=== PATIENT | male | born 1935 | race Caucasian/White ===

== ENCOUNTER 2019-05-22 08:36 | Inpatient (IN) | payer MEDICARE ==
[~2019-05-22] VITALS: Ht 177.8 cm; Wt 95.3 kg
[2019-05-22] MEDS ORDERED: PROPOFOL 10MG/ML 100ML 100 ML IV ONE ×2 (09:30→09:36)
[2019-05-22] MEDS ORDERED: SUCCINYLCHOLINE CHLORIDE 200MG/10ML IV ONE (09:30)
[2019-05-22] MEDS ORDERED: ETOMIDATE 2MG/ML 10ML VIAL IV ONE (09:30)
[2019-05-22 09:36] LABS: HEMATOCRIT. 56.2 % (42.0-52.0); HEMOGLOBIN. 18.8 g/dL (14.0-18.0); MEAN CORPUSCULAR HEMOGLOBIN 29.4 pg (28.0-32.0); MEAN CORPUSCULAR VOLUME 87.8 fL (80.0-94.0); MEAN PLATELET VOLUME 9.5 fl (7.4-10.4); PLATELET 465 x1000/uL (130-400); RED CELL DISTRIBUTION WIDTH 14.2 % (11.6-14.6)
[2019-05-22 09:41] LABS: CHLORIDE 98 mEq/L (98-107)
[2019-05-22 09:44] LABS: INR 1.2; PROTHROMBIN TIME 13.3 sec (9.6-11.0)
[2019-05-22] MEDS ORDERED: NOREPINEPHRINE 4MG/250ML PMX 250 ML IV STA (09:54)
[2019-05-22] MEDS ORDERED: NOREPINEPHRINE 4MG/250ML PMX 250 ML IV ONE (10:01)
[2019-05-22 10:14] LABS: BG BASE EXCESS -12.4 mmol/L (-2.0-2.0); BG DEOXYHEMOGLOBIN 2.3 % (0.0-5.0); BG HCO3 ACT 16.2 mmol/L (22.0-26.0); BG METHEMOGLOBIN 0.3 % (0.0-1.5); BG OXYGEN SATURATION 97.7 % (92.0-98.5); BG OXYHEMOGLOBIN 96.4 % (94.0-97.0); BG PCO2 46.5 mmHg (35.0-45.0); BG PO2 121.6 mmHg (75.0-100.0); BG SAMPLE SITE RIGHT RADIAL; BG TIDAL VOLUME(mL) 500 mL; BG TOTAL HEMOGLOBIN 16.1 g/dL (12.0-18.0); BG VENT MODE VENT - A/C; BG VENT RATE 12 set
[2019-05-22 10:31] LABS: PLATELET ESTIMATE INCREASED
[2019-05-22] MEDS ORDERED: INSULIN REGULAR (HUMULIN R) 300UNITS/3ML IV ONE (11:00)
[2019-05-22] MEDS ORDERED: DEXTROSE 50% WATER 50ML SYRINGE IV ONE (11:00)
[2019-05-22] MEDS ORDERED: SODIUM BICARBONATE 8.4% 1 MEQ/ML 50ML SYR IV ONE (11:00)
[2019-05-22] MEDS ORDERED: CALCIUM CHLORIDE 1GM/10ML SYR IV ONE (11:00)
[2019-05-22] MEDS ORDERED: ACETAMINOPHEN 325MG TABLET PO PRN (12:30)
[2019-05-22] MEDS ORDERED: ONDANSETRON HCL 4MG/2ML INJ IV PRN (12:30)
[2019-05-22 13:48] LABS: BG BASE EXCESS -11.6 mmol/L (-2.0-2.0); BG CARBOXYHEMOGLOBIN 0.2 % (0.5-1.5); BG DEOXYHEMOGLOBIN 1.5 % (0.0-5.0); BG FRACTION INSPIRED OXYGEN 100; BG HCO3 ACT 14.8 mmol/L (22.0-26.0); BG METHEMOGLOBIN 0.5 % (0.0-1.5); BG OXYGEN SATURATION 98.5 % (92.0-98.5); BG OXYHEMOGLOBIN 97.8 % (94.0-97.0); BG PCO2 35.8 mmHg (35.0-45.0); BG PH 7.235 (7.350-7.450); BG PO2 136.2 mmHg (75.0-100.0); BG SAMPLE SITE RIGHT RADIAL; BG TIDAL VOLUME(mL) 500 mL; BG TOTAL HEMOGLOBIN 16.7 g/dL (12.0-18.0); BG VENT MODE VENT - A/C; BG VENT RATE 12 set
[2019-05-22] MEDS ORDERED: PIPERACILLIN/TAZ 3.375G PREMIX 50 ML IV NR (15:06)
[2019-05-22] MEDS: ENOXAPARIN 30MG/0.3ML SYR SUBCUT SCH (15:55)
[2019-05-22] MEDS ORDERED: VANCOMYCIN 1,750 MG in DEXT 5% WATER 250 ML IV SCH (16:00)
[2019-05-22] MEDS ORDERED: PROPOFOL 10MG/ML 100ML 100 ML IV NR (16:08)
[2019-05-22] MEDS ORDERED: PHENYLEPHRINE 10 MG in DEXT 5% WATER 249 ML IV PRN ×2 (17:32→17:45)
[2019-05-22] MEDS ORDERED: NOREPINEPHRINE 4 MG in DEXT 5% WATER 246 ML IV PRN (22:15)
[2019-05-22] MEDS ORDERED: INSULIN GLARGINE UD 100 UNITS/ML SYR SUBCUT SCH (22:30)
[2019-05-22] MEDS ORDERED: NOREPINEPHRINE 4MG/250ML PMX 250 ML IV PRN (22:30)
[2019-05-22] MEDS ORDERED: SODIUM POLYSTYRENE SULFONATE 15 G/60 ML BOT PO NR (22:45)
[2019-05-23] VITALS (90 sets, daily range): BP systolic 68–153; BP diastolic 21–96
[2019-05-23] MEDS ORDERED: PIPERACILLIN/TAZOBACTAM 2.25 G in DEXTROSE 5% WATER 50 ML IV NR ×2
[2019-05-23] MEDS: SODIUM CHLORIDE 0.9% 1,000 ML IV SCH (02:26)
[2019-05-23] MEDS ORDERED: PROPOFOL 10MG/ML 100ML 100 ML IV PRN (03:30)
[2019-05-23] MEDS ORDERED: PHENYLEPHRINE 10 MG in DEXT 5% WATER 249 ML IV PRN (03:45)
[2019-05-23] MEDS: NOREPINEPHRINE 32 MG in DEXT 5% WATER 468 ML IV PRN ×2 (05:36→23:01)
[2019-05-23 05:37] LABS: HEMOGLOBIN. 16.4 g/dL (14.0-18.0); MEAN CORPUSCULAR HEMOGLOBIN 29.1 pg (28.0-32.0); MEAN CORPUSCULAR VOLUME 87.4 fL (80.0-94.0); MEAN PLATELET VOLUME 9.5 fl (7.4-10.4); PLATELET 423 x1000/uL (130-400); RED BLOOD CELL COUNT 5.61 mill/uL (4.7-6.1); RED CELL DISTRIBUTION WIDTH 14.2 % (11.6-14.6)
[2019-05-23] MEDS: PHENYLEPHRINE 40 MG in DEXT 5% WATER 246 ML IV PRN ×4 (05:37→17:01)
[2019-05-23] MEDS: HYDROCORTISONE SOD SUCCINATE 100 MG/2 ML VIAL IV SCH ×3 (06:37→22:40)
[2019-05-23] MEDS ORDERED: ALBUMIN HUMAN 25GM/100ML (25%) IV SCH (07:00)
[2019-05-23] MEDS ORDERED: PIPERACILLIN/TAZOBACTAM 3.375 G in DEXT 5% WATER 100 ML IV SCH (08:00)
[2019-05-23 08:18] LABS: PLATELET ESTIMATE INCREASED
[2019-05-23] MEDS: IPRATROPIUM/ALBUTEROL 0.5-3(2.5)MG/3ML NEB HHN SCH ×3 (08:36→20:44)
[2019-05-23] MEDS: PANTOPRAZOLE SODIUM 40 MG/VIAL IV SCH (08:57)
[2019-05-23] MEDS: PIPERACILLIN/TAZOBACTAM 2.25 G in DEXTROSE 5% WATER 50 ML IV SCH ×2 (09:01→17:00)
[2019-05-23 10:13] LABS: BG BASE EXCESS -11.6 mmol/L (-2.0-2.0); BG CARBOXYHEMOGLOBIN 0.3 % (0.5-1.5); BG DEOXYHEMOGLOBIN 0.7 % (0.0-5.0); BG FRACTION INSPIRED OXYGEN 100; BG HCO3 ACT 18.1 mmol/L (22.0-26.0); BG METHEMOGLOBIN 0.3 % (0.0-1.5); BG OXYGEN SATURATION 99.3 % (92.0-98.5); BG OXYHEMOGLOBIN 98.7 % (94.0-97.0); BG PCO2 57.2 mmHg (35.0-45.0); BG PH 7.118 (7.350-7.450); BG PO2 216.5 mmHg (75.0-100.0); BG SAMPLE SITE RIGHT BRACHIAL; BG TIDAL VOLUME(mL) 500 mL; BG TOTAL HEMOGLOBIN 13.4 g/dL (12.0-18.0); BG VENT MODE VENT - A/C; BG VENT RATE 12 set
[2019-05-23] MEDS ORDERED: SODIUM BICARBONATE 8.4% 1 MEQ/ML 50ML SYR IV NR (10:45)
[2019-05-23] MEDS ORDERED: SODIUM POLYSTYRENE SULFONATE 15 G/60 ML BOT PO NR (11:00)
[2019-05-23 12:21] LABS: BG BASE EXCESS -8.4 mmol/L (-2.0-2.0); BG CARBOXYHEMOGLOBIN 0.3 % (0.5-1.5); BG DEOXYHEMOGLOBIN 0.8 % (0.0-5.0); BG HCO3 ACT 21.2 mmol/L (22.0-26.0); BG METHEMOGLOBIN 0.3 % (0.0-1.5); BG OXYGEN SATURATION 99.2 % (92.0-98.5); BG OXYHEMOGLOBIN 98.6 % (94.0-97.0); BG PCO2 62.3 mmHg (35.0-45.0); BG PH 7.149 (7.350-7.450); BG PO2 247.8 mmHg (75.0-100.0); BG SAMPLE SITE RIGHT RADIAL; BG TIDAL VOLUME(mL) 500 mL; BG TOTAL HEMOGLOBIN 13.3 g/dL (12.0-18.0); BG VENT MODE VENT - A/C; BG VENT RATE 12 set
[2019-05-23] MEDS: SODIUM BICARBONATE 50 MEQ in SODIUM CHLORIDE 0.45% 1,000 ML IV SCH (13:07)
[2019-05-23] MEDS ORDERED: SODIUM CHLORIDE 0.9% 1,000 ML IV ONE (14:30)
[2019-05-23] MEDS: ENOXAPARIN 30MG/0.3ML SYR SUBCUT SCH (15:49)
[2019-05-23] MEDS: PROPOFOL 10MG/ML 100ML 100 ML IV PRN (19:43)
[2019-05-23] MEDS: PHENYLEPHRINE 80 MG in DEXT 5% WATER 492 ML IV PRN (21:08)
[2019-05-23] MEDS ORDERED: CALCIUM CHLORIDE 1GM/10ML SYR IV ONE (22:15)
[2019-05-23] MEDS ORDERED: FUROSEMIDE 100MG/10ML VIAL IVP NR (22:28)
[2019-05-23] MEDS ORDERED: CALCIUM CHLORIDE 2,000 MG in DEXT 5% WATER 90 ML IV NR (23:00)
[2019-05-23 23:49] LABS: CLARITY URINE TURBID (CLEAR); KETONES URINE TRACE (NEGATIVE); LEUKOCYTE ESTERASE URINE 2+ (NEGATIVE); NITRITE URINE NEGATIVE (NEGATIVE); OCCULT BLOOD URINE 3+ (NEGATIVE); PROTEIN URINE 3+ (NEGATIVE)
[2019-05-24] VITALS (91 sets, daily range): BP systolic 101–145; BP diastolic 52–83
[2019-05-24 00:03] LABS: COLOR URINE YELLOW (YELLOW)
[2019-05-24] MEDS: IPRATROPIUM/ALBUTEROL 0.5-3(2.5)MG/3ML NEB HHN SCH ×4 (00:48→21:15)
[2019-05-24] MEDS: SODIUM BICARBONATE 50 MEQ in SODIUM CHLORIDE 0.45% 1,000 ML IV SCH ×3 (01:12→18:11)
[2019-05-24] MEDS: PIPERACILLIN/TAZOBACTAM 2.25 G in DEXTROSE 5% WATER 50 ML IV SCH ×3 (01:12→18:12)
[2019-05-24] MEDS: HYDROCORTISONE SOD SUCCINATE 100 MG/2 ML VIAL IV SCH ×3 (05:16→21:14)
[2019-05-24] MEDS: PHENYLEPHRINE 80 MG in DEXT 5% WATER 492 ML IV PRN ×2 (05:17→17:42)
[2019-05-24 05:49] LABS: HEMATOCRIT. 36.8 % (42.0-52.0); HEMOGLOBIN. 12.2 g/dL (14.0-18.0); MEAN CORPUSCULAR HEMOGLOBIN 29.1 pg (28.0-32.0); MEAN CORPUSCULAR VOLUME 87.4 fL (80.0-94.0); MEAN PLATELET VOLUME 9.3 fl (7.4-10.4); PLATELET 286 x1000/uL (130-400); RED BLOOD CELL COUNT 4.21 mill/uL (4.7-6.1); RED CELL DISTRIBUTION WIDTH 14.2 % (11.6-14.6)
[2019-05-24] MEDS: PANTOPRAZOLE SODIUM 40 MG/VIAL IV SCH (09:15)
[2019-05-24] MEDS: FUROSEMIDE 40MG TABLET PO SCH ×2 (09:16→21:14)
[2019-05-24 09:41] LABS: BG BASE EXCESS -7.5 mmol/L (-2.0-2.0); BG CARBOXYHEMOGLOBIN 0.3 % (0.5-1.5); BG DEOXYHEMOGLOBIN 1.4 % (0.0-5.0); BG FRACTION INSPIRED OXYGEN 70; BG HCO3 ACT 18.8 mmol/L (22.0-26.0); BG METHEMOGLOBIN 0.1 % (0.0-1.5); BG OXYGEN SATURATION 98.6 % (92.0-98.5); BG OXYHEMOGLOBIN 98.2 % (94.0-97.0); BG PCO2 41.4 mmHg (35.0-45.0); BG PH 7.276 (7.350-7.450); BG PO2 131.7 mmHg (75.0-100.0); BG SAMPLE SITE RIGHT RADIAL; BG TIDAL VOLUME(mL) 500 mL; BG TOTAL HEMOGLOBIN 12.1 g/dL (12.0-18.0); BG VENT MODE VENT - A/C; BG VENT RATE 20 set
[2019-05-24] MEDS ORDERED: SODIUM BICARBONATE 8.4% 1 MEQ/ML 50ML SYR IV ONE (10:30)
[2019-05-24] MEDS ORDERED: VANCOMYCIN 500 MG PREMIX 100 ML IV SCH (11:00)
[2019-05-24] MEDS: PROPOFOL 10MG/ML 100ML 100 ML IV PRN (11:21)
[2019-05-24 11:41] LABS: NUCLEATED RED BLOOD CELLS 1 /100 WBC; PLATELET ESTIMATE NORMAL
[2019-05-24] MEDS: MIDODRINE HCL 5MG TABLET PO SCH ×2 (13:47→17:41)
[2019-05-24] MEDS ORDERED: PROPOFOL 10MG/ML 100ML 100 ML IV PRN (15:00)
[2019-05-24] MEDS: ENOXAPARIN 30MG/0.3ML SYR SUBCUT SCH (15:49)
[2019-05-25] VITALS (91 sets, daily range): BP systolic 75–169; BP diastolic 42–92
[2019-05-25 01:06] LABS: D-DIMER 5.53 mg/L FEU (<0.50); INR 1.1; PARTIAL THROMBOPLASTIN TIME 37.8 sec (23.4-31.0); PROTHROMBIN TIME 11.7 sec (9.6-11.0)
[2019-05-25] MEDS: PIPERACILLIN/TAZOBACTAM 2.25 G in DEXTROSE 5% WATER 50 ML IV SCH ×3 (02:04→18:12)
[2019-05-25] MEDS: SODIUM BICARBONATE 50 MEQ in SODIUM CHLORIDE 0.45% 1,000 ML IV SCH ×2 (03:00→12:48)
[2019-05-25] MEDS ORDERED: LEVETIRACETAM 500 MG in SODIUM CHLORIDE 0.9% 100 ML IV SCH (04:00)
[2019-05-25] MEDS: IPRATROPIUM/ALBUTEROL 0.5-3(2.5)MG/3ML NEB HHN SCH ×4 (04:35→19:43)
[2019-05-25 05:33] LABS: HEMATOCRIT. 31.5 % (42.0-52.0); HEMOGLOBIN. 10.7 g/dL (14.0-18.0); MEAN CORPUSCULAR HEMOGLOBIN 29.5 pg (28.0-32.0); MEAN CORPUSCULAR VOLUME 86.3 fL (80.0-94.0); RED BLOOD CELL COUNT 3.65 mill/uL (4.7-6.1); RED CELL DISTRIBUTION WIDTH 13.9 % (11.6-14.6)
[2019-05-25 05:43] LABS: CHLORIDE 89 mEq/L (98-107)
[2019-05-25] MEDS: HYDROCORTISONE SOD SUCCINATE 100 MG/2 ML VIAL IV SCH ×3 (06:00→23:32)
[2019-05-25] MEDS ORDERED: LIDOCAINE HCL 1% 20ML VIAL (Pyxis) INJ ONE (07:57)
[2019-05-25] MEDS: PHENYLEPHRINE 80 MG in DEXT 5% WATER 492 ML IV PRN ×2 (08:11→21:45)
[2019-05-25 08:18] LABS: BG BASE EXCESS -11.6 mmol/L (-2.0-2.0); BG CARBOXYHEMOGLOBIN 0.2 % (0.5-1.5); BG HCO3 ACT 13.6 mmol/L (22.0-26.0); BG METHEMOGLOBIN 0.3 % (0.0-1.5); BG OXYHEMOGLOBIN 97.5 % (94.0-97.0); BG PCO2 28.7 mmHg (35.0-45.0); BG PH 7.294 (7.350-7.450); BG PO2 116.8 mmHg (75.0-100.0); BG SAMPLE SITE RIGHT RADIAL; BG TIDAL VOLUME(mL) 500 mL; BG TOTAL HEMOGLOBIN 10.4 g/dL (12.0-18.0); BG VENT MODE VENT - A/C; BG VENT RATE 20 set
[2019-05-25] MEDS: PANTOPRAZOLE SODIUM 40 MG/VIAL IV SCH (09:25)
[2019-05-25] MEDS: FUROSEMIDE 40MG TABLET PO SCH ×2 (09:26→21:00)
[2019-05-25] MEDS: MIDODRINE HCL 5MG TABLET PO SCH ×3 (09:26→18:12)
[2019-05-25 09:59] LABS: PLATELET 212 x1000/uL (130-400)
[2019-05-25 10:02] LABS: NUCLEATED RED BLOOD CELLS 1 /100 WBC
[2019-05-25 10:03] LABS: PLATELET ESTIMATE NORMAL
[2019-05-25] MEDS ORDERED: SODIUM BICARBONATE 8.4% 1 MEQ/ML 50ML SYR IV SCH (13:15)
[2019-05-25] MEDS: ENOXAPARIN 30MG/0.3ML SYR SUBCUT SCH (15:37)
[2019-05-25] MEDS ORDERED: VANCOMYCIN 500 MG PREMIX 100 ML IV SCH (16:00)
[2019-05-25] MEDS ORDERED: PROPOFOL 10MG/ML 100ML 100 ML IV PRN (16:00)
[2019-05-26] VITALS (97 sets, daily range): BP systolic 77–168; BP diastolic 42–121
[2019-05-26] MEDS: SODIUM BICARBONATE 50 MEQ in SODIUM CHLORIDE 0.45% 1,000 ML IV SCH ×4 (01:13→19:03)
[2019-05-26] MEDS: PIPERACILLIN/TAZOBACTAM 2.25 G in DEXTROSE 5% WATER 50 ML IV SCH ×3 (02:03→17:44)
[2019-05-26] MEDS: IPRATROPIUM/ALBUTEROL 0.5-3(2.5)MG/3ML NEB HHN SCH ×4 (03:52→20:44)
[2019-05-26 05:35] LABS: CHLORIDE 98 mEq/L (98-107); HEMATOCRIT. 27.4 % (42.0-52.0); HEMOGLOBIN. 9.9 g/dL (14.0-18.0); MEAN CORPUSCULAR HEMOGLOBIN 31.1 pg (28.0-32.0); MEAN CORPUSCULAR VOLUME 86.5 fL (80.0-94.0); MEAN PLATELET VOLUME 9.3 fl (7.4-10.4); PLATELET 186 x1000/uL (130-400); RED BLOOD CELL COUNT 3.17 mill/uL (4.7-6.1); RED CELL DISTRIBUTION WIDTH 14.6 % (11.6-14.6)
[2019-05-26] MEDS: HYDROCORTISONE SOD SUCCINATE 100 MG/2 ML VIAL IV SCH ×3 (06:21→21:01)
[2019-05-26 08:11] LABS: PLATELET ESTIMATE NORMAL
[2019-05-26] MEDS ORDERED: CALCIUM GLUCONATE 2,000 MG in DEXT 5% WATER 90 ML IV SCH (09:00)
[2019-05-26 09:36] LABS: BG BASE EXCESS -1.3 mmol/L (-2.0-2.0); BG CARBOXYHEMOGLOBIN 0.3 % (0.5-1.5); BG DEOXYHEMOGLOBIN 2.6 % (0.0-5.0); BG FRACTION INSPIRED OXYGEN 60; BG HCO3 ACT 24.9 mmol/L (22.0-26.0); BG METHEMOGLOBIN 0.3 % (0.0-1.5); BG OXYGEN SATURATION 97.4 % (92.0-98.5); BG OXYHEMOGLOBIN 96.8 % (94.0-97.0); BG PCO2 48.3 mmHg (35.0-45.0); BG PO2 102.8 mmHg (75.0-100.0); BG SAMPLE SITE RIGHT RADIAL; BG TIDAL VOLUME(mL) 500 mL; BG TOTAL HEMOGLOBIN 10.4 g/dL (12.0-18.0); BG VENT MODE VENT - A/C; BG VENT RATE 20 set
[2019-05-26] MEDS: PANTOPRAZOLE SODIUM 40 MG/VIAL IV SCH (09:52)
[2019-05-26] MEDS: FUROSEMIDE 40MG TABLET PO SCH ×2 (09:53→21:01)
[2019-05-26] MEDS: MIDODRINE HCL 5MG TABLET PO SCH ×3 (09:53→17:45)
[2019-05-26] MEDS: FENTANYL CITRATE/PF 500 MCG in SODIUM CHLORIDE 0.9% 40 ML IV PRN ×2 (11:30→21:44)
[2019-05-26] MEDS: MIDAZOLAM HCL 50 MG in DEXTROSE 5% WATER 40 ML IV PRN (11:31)
[2019-05-26] MEDS: PHENYLEPHRINE 80 MG in DEXT 5% WATER 492 ML IV PRN (13:41)
[2019-05-26] MEDS: ENOXAPARIN 30MG/0.3ML SYR SUBCUT SCH (15:48)
[2019-05-27] VITALS (86 sets, daily range): BP systolic 92–148; BP diastolic 48–108
[2019-05-27] MEDS: PIPERACILLIN/TAZOBACTAM 2.25 G in DEXTROSE 5% WATER 50 ML IV SCH ×2 (01:36→09:03)
[2019-05-27] MEDS: MIDAZOLAM HCL 50 MG in DEXTROSE 5% WATER 40 ML IV PRN (02:15)
[2019-05-27] MEDS: SODIUM BICARBONATE 50 MEQ in SODIUM CHLORIDE 0.45% 1,000 ML IV SCH (03:09)
[2019-05-27] MEDS: HYDROCORTISONE SOD SUCCINATE 100 MG/2 ML VIAL IV SCH ×3 (05:30→21:49)
[2019-05-27] MEDS: PHENYLEPHRINE 80 MG in DEXT 5% WATER 492 ML IV PRN (05:31)
[2019-05-27 06:37] LABS: HEMATOCRIT. 25.6 % (42.0-52.0); HEMOGLOBIN. 8.6 g/dL (14.0-18.0); MEAN CORPUSCULAR HEMOGLOBIN 29.3 pg (28.0-32.0); MEAN CORPUSCULAR VOLUME 86.9 fL (80.0-94.0); PLATELET 166 x1000/uL (130-400); RED BLOOD CELL COUNT 2.94 mill/uL (4.7-6.1); RED CELL DISTRIBUTION WIDTH 14.1 % (11.6-14.6)
[2019-05-27 06:47] LABS: CHLORIDE 93 mEq/L (98-107)
[2019-05-27 07:53] LABS: NUCLEATED RED BLOOD CELLS 1 /100 WBC
[2019-05-27 07:54] LABS: PLATELET ESTIMATE NORMAL
[2019-05-27] MEDS: FUROSEMIDE 40MG TABLET PO SCH (08:57)
[2019-05-27] MEDS: PANTOPRAZOLE SODIUM 40 MG/VIAL IV SCH (08:57)
[2019-05-27] MEDS: MIDODRINE HCL 5MG TABLET PO SCH ×3 (08:58→16:20)
[2019-05-27] MEDS: IPRATROPIUM/ALBUTEROL 0.5-3(2.5)MG/3ML NEB HHN SCH ×2 (10:00→20:40)
[2019-05-27 10:21] LABS: BG BASE EXCESS -0.5 mmol/L (-2.0-2.0); BG CARBOXYHEMOGLOBIN 0.3 % (0.5-1.5); BG DEOXYHEMOGLOBIN 2.3 % (0.0-5.0); BG FRACTION INSPIRED OXYGEN 55; BG HCO3 ACT 24.8 mmol/L (22.0-26.0); BG OXYGEN SATURATION 97.7 % (92.0-98.5); BG OXYHEMOGLOBIN 97.4 % (94.0-97.0); BG PCO2 43.4 mmHg (35.0-45.0); BG PH 7.374 (7.350-7.450); BG PO2 106.1 mmHg (75.0-100.0); BG SAMPLE SITE RIGHT RADIAL; BG TIDAL VOLUME(mL) 500 mL; BG TOTAL HEMOGLOBIN 9.6 g/dL (12.0-18.0); BG VENT MODE VENT - A/C; BG VENT RATE 20 set
[2019-05-27] MEDS ORDERED: VANCOMYCIN 1,000 MG in DEXT 5% WATER 250 ML IV NR (12:00)
[2019-05-27] MEDS: FUROSEMIDE 40MG/4ML VIAL IVP SCH ×2 (13:51→21:49)
[2019-05-27] MEDS: FENTANYL CITRATE/PF 500 MCG in SODIUM CHLORIDE 0.9% 40 ML IV PRN (13:53)
[2019-05-27] MEDS: ENOXAPARIN 30MG/0.3ML SYR SUBCUT SCH (15:41)
[2019-05-27] MEDS: CEFAZOLIN 1000MG PREMIX 50 ML IV SCH (15:43)
[2019-05-27] MEDS: MICAFUNGIN 100 MG in SODIUM CHLORIDE 0.9% 100 ML IV SCH (16:20)
[2019-05-28] VITALS (80 sets, daily range): BP systolic 107–160; BP diastolic 53–126
[2019-05-28] MEDS: IPRATROPIUM/ALBUTEROL 0.5-3(2.5)MG/3ML NEB HHN SCH ×4 (02:01→20:39)
[2019-05-28] MEDS: CEFAZOLIN 1000MG PREMIX 50 ML IV SCH ×2 (03:20→16:14)
[2019-05-28] MEDS: FUROSEMIDE 40MG/4ML VIAL IVP SCH ×3 (05:32→21:18)
[2019-05-28] MEDS: HYDROCORTISONE SOD SUCCINATE 100 MG/2 ML VIAL IV SCH ×3 (05:32→21:18)
[2019-05-28 06:51] LABS: HEMATOCRIT. 27.9 % (42.0-52.0); HEMOGLOBIN. 9.4 g/dL (14.0-18.0); MEAN CORPUSCULAR HEMOGLOBIN 29.2 pg (28.0-32.0); MEAN CORPUSCULAR VOLUME 86.3 fL (80.0-94.0); MEAN PLATELET VOLUME 9.2 fl (7.4-10.4); PLATELET 162 x1000/uL (130-400); RED BLOOD CELL COUNT 3.23 mill/uL (4.7-6.1); RED CELL DISTRIBUTION WIDTH 14.6 % (11.6-14.6)
[2019-05-28 07:08] LABS: CHLORIDE 96 mEq/L (98-107)
[2019-05-28] MEDS ORDERED: POTASSIUM CHLORIDE 20MEQ/PACKET PO NR ×2 (09:15→09:30)
[2019-05-28 09:28] LABS: PLATELET ESTIMATE NORMAL
[2019-05-28] MEDS: PANTOPRAZOLE SODIUM 40 MG/VIAL IV SCH (09:30)
[2019-05-28] MEDS: MIDODRINE HCL 5MG TABLET PO SCH ×3 (09:31→16:15)
[2019-05-28 14:34] LABS: BG BASE EXCESS -0.6 mmol/L (-2.0-2.0); BG CARBOXYHEMOGLOBIN 0.2 % (0.5-1.5); BG DEOXYHEMOGLOBIN 3.1 % (0.0-5.0); BG FRACTION INSPIRED OXYGEN 50; BG HCO3 ACT 25.2 mmol/L (22.0-26.0); BG METHEMOGLOBIN 0.1 % (0.0-1.5); BG OXYGEN SATURATION 96.9 % (92.0-98.5); BG OXYHEMOGLOBIN 96.6 % (94.0-97.0); BG PCO2 46.5 mmHg (35.0-45.0); BG PH 7.352 (7.350-7.450); BG SAMPLE SITE RIGHT RADIAL; BG TIDAL VOLUME(mL) 500 mL; BG TOTAL HEMOGLOBIN 10.5 g/dL (12.0-18.0); BG VENT MODE VENT - A/C; BG VENT RATE 20 set
[2019-05-28] MEDS: ENOXAPARIN 30MG/0.3ML SYR SUBCUT SCH (16:15)
[2019-05-28] MEDS: LORAZEPAM 2MG/ML CPJ IV PRN (16:15)
[2019-05-28] MEDS: MICAFUNGIN 100 MG in SODIUM CHLORIDE 0.9% 100 ML IV SCH (18:03)
[2019-05-29] VITALS (47 sets, daily range): BP systolic 119–170; BP diastolic 58–89
[2019-05-29] MEDS: IPRATROPIUM/ALBUTEROL 0.5-3(2.5)MG/3ML NEB HHN SCH ×4 (03:14→20:10)
[2019-05-29] MEDS: CEFAZOLIN 1000MG PREMIX 50 ML IV SCH ×2 (03:59→16:16)
[2019-05-29] MEDS: HYDROCORTISONE SOD SUCCINATE 100 MG/2 ML VIAL IV SCH ×3 (06:21→22:06)
[2019-05-29] MEDS: FUROSEMIDE 40MG/4ML VIAL IVP SCH ×3 (06:21→22:06)
[2019-05-29 06:39] LABS: HEMATOCRIT. 28.4 % (42.0-52.0); HEMOGLOBIN. 9.6 g/dL (14.0-18.0); MEAN CORPUSCULAR HEMOGLOBIN 29.2 pg (28.0-32.0); MEAN CORPUSCULAR VOLUME 86.6 fL (80.0-94.0); PLATELET 165 x1000/uL (130-400); RED BLOOD CELL COUNT 3.28 mill/uL (4.7-6.1); RED CELL DISTRIBUTION WIDTH 14.6 % (11.6-14.6)
[2019-05-29 06:47] LABS: CHLORIDE 102 mEq/L (98-107)
[2019-05-29 07:59] LABS: PLATELET ESTIMATE NORMAL
[2019-05-29] MEDS: MORPHINE SULFATE 2 MG/ML CPJ (NOT FOR IM USE) IV PRN (08:11)
[2019-05-29] MEDS: PANTOPRAZOLE SODIUM 40 MG/VIAL IV SCH (08:11)
[2019-05-29] MEDS: MIDODRINE HCL 5MG TABLET PO SCH ×3 (08:12→16:17)
[2019-05-29] MEDS ORDERED: POTASSIUM CHLORIDE 20MEQ/PACKET PO NR (10:00)
[2019-05-29 11:26] LABS: BG BASE EXCESS 1.1 mmol/L (-2.0-2.0); BG CARBOXYHEMOGLOBIN 0.3 % (0.5-1.5); BG DEOXYHEMOGLOBIN 4.3 % (0.0-5.0); BG FRACTION INSPIRED OXYGEN 50; BG HCO3 ACT 27.8 mmol/L (22.0-26.0); BG METHEMOGLOBIN 0.2 % (0.0-1.5); BG OXYGEN SATURATION 95.7 % (92.0-98.5); BG OXYHEMOGLOBIN 95.2 % (94.0-97.0); BG PCO2 54.7 mmHg (35.0-45.0); BG PH 7.324 (7.350-7.450); BG PRESSURE SUPPORT 10; BG SAMPLE SITE RIGHT RADIAL; BG TOTAL HEMOGLOBIN 10.6 g/dL (12.0-18.0); BG VENT MODE VENT - CPAP
[2019-05-29] MEDS: ENOXAPARIN 30MG/0.3ML SYR SUBCUT SCH (16:16)
[2019-05-29] MEDS: MICAFUNGIN 100 MG in SODIUM CHLORIDE 0.9% 100 ML IV SCH (16:16)
[2019-05-30] VITALS (43 sets, daily range): BP systolic 103–152; BP diastolic 55–87
[2019-05-30] MEDS: IPRATROPIUM/ALBUTEROL 0.5-3(2.5)MG/3ML NEB HHN SCH ×4 (02:04→20:00)
[2019-05-30] MEDS: CEFAZOLIN 1000MG PREMIX 50 ML IV SCH ×2 (04:17→15:03)
[2019-05-30] MEDS: HYDROCORTISONE SOD SUCCINATE 100 MG/2 ML VIAL IV SCH ×3 (05:31→21:52)
[2019-05-30] MEDS: FUROSEMIDE 40MG/4ML VIAL IVP SCH ×3 (05:31→20:24)
[2019-05-30 05:37] LABS: HEMATOCRIT. 28.4 % (42.0-52.0); HEMOGLOBIN. 9.4 g/dL (14.0-18.0); MEAN CORPUSCULAR VOLUME 87.3 fL (80.0-94.0); MEAN PLATELET VOLUME 9.2 fl (7.4-10.4); PLATELET 162 x1000/uL (130-400); RED BLOOD CELL COUNT 3.25 mill/uL (4.7-6.1); RED CELL DISTRIBUTION WIDTH 14.7 % (11.6-14.6)
[2019-05-30 05:42] LABS: CHLORIDE 102 mEq/L (98-107)
[2019-05-30] MEDS: PANTOPRAZOLE SODIUM 40 MG/VIAL IV SCH (08:15)
[2019-05-30] MEDS: MORPHINE SULFATE 2 MG/ML CPJ (NOT FOR IM USE) IV PRN (08:16)
[2019-05-30] MEDS: MIDODRINE HCL 5MG TABLET PO SCH ×3 (08:18→16:45)
[2019-05-30 10:23] LABS: PLATELET ESTIMATE NORMAL
[2019-05-30] MEDS: ENOXAPARIN 30MG/0.3ML SYR SUBCUT SCH (14:58)
[2019-05-30] MEDS: POTASSIUM CHLORIDE 20MEQ/PACKET PO SCH (15:15)
[2019-05-30] MEDS: MICAFUNGIN 100 MG in SODIUM CHLORIDE 0.9% 100 ML IV SCH (16:47)
[2019-05-31] VITALS (42 sets, daily range): BP systolic 94–161; BP diastolic 50–86
[2019-05-31] MEDS: LORAZEPAM 2MG/ML CPJ IV PRN (00:24)
[2019-05-31] MEDS: IPRATROPIUM/ALBUTEROL 0.5-3(2.5)MG/3ML NEB HHN SCH ×4 (02:00→20:11)
[2019-05-31] MEDS: CEFAZOLIN 1000MG PREMIX 50 ML IV SCH ×2 (03:56→15:17)
[2019-05-31] MEDS: HYDROCORTISONE SOD SUCCINATE 100 MG/2 ML VIAL IV SCH ×2 (05:31→14:07)
[2019-05-31 05:34] LABS: HEMATOCRIT. 28.5 % (42.0-52.0); HEMOGLOBIN. 9.3 g/dL (14.0-18.0); MEAN CORPUSCULAR HEMOGLOBIN 28.9 pg (28.0-32.0); MEAN CORPUSCULAR VOLUME 88.4 fL (80.0-94.0); MEAN PLATELET VOLUME 9.2 fl (7.4-10.4); PLATELET 172 x1000/uL (130-400); RED BLOOD CELL COUNT 3.22 mill/uL (4.7-6.1); RED CELL DISTRIBUTION WIDTH 14.8 % (11.6-14.6)
[2019-05-31 08:55] LABS: BG CARBOXYHEMOGLOBIN 0.3 % (0.5-1.5); BG DEOXYHEMOGLOBIN 3.4 % (0.0-5.0); BG FRACTION INSPIRED OXYGEN 50; BG HCO3 ACT 26.5 mmol/L (22.0-26.0); BG METHEMOGLOBIN 0.2 % (0.0-1.5); BG OXYGEN SATURATION 96.6 % (92.0-98.5); BG OXYHEMOGLOBIN 96.1 % (94.0-97.0); BG PCO2 46.4 mmHg (35.0-45.0); BG PH 7.374 (7.350-7.450); BG PO2 89.6 mmHg (75.0-100.0); BG SAMPLE SITE RIGHT RADIAL; BG TIDAL VOLUME(mL) 500 mL; BG TOTAL HEMOGLOBIN 9.6 g/dL (12.0-18.0); BG VENT MODE VENT - A/C; BG VENT RATE 20 set
[2019-05-31] MEDS: PANTOPRAZOLE SODIUM 40 MG/VIAL IV SCH (09:17)
[2019-05-31] MEDS: FUROSEMIDE 40MG/4ML VIAL IVP SCH (09:17)
[2019-05-31] MEDS: POTASSIUM CHLORIDE 20MEQ/PACKET PO SCH (09:18)
[2019-05-31] MEDS: MIDODRINE HCL 5MG TABLET PO SCH ×4 (09:18→18:09)
[2019-05-31 11:12] LABS: PLATELET ESTIMATE NORMAL
[2019-05-31] MEDS: ENOXAPARIN 30MG/0.3ML SYR SUBCUT SCH (15:17)
[2019-05-31] MEDS: MICAFUNGIN 100 MG in SODIUM CHLORIDE 0.9% 100 ML IV SCH (16:39)
[2019-06-01] VITALS (32 sets, daily range): BP systolic 99–156; BP diastolic 55–95
[2019-06-01] MEDS: LORAZEPAM 2MG/ML CPJ IV PRN (00:42)
[2019-06-01] MEDS: IPRATROPIUM/ALBUTEROL 0.5-3(2.5)MG/3ML NEB HHN SCH ×2 (01:18→20:44)
[2019-06-01] MEDS: HYDROCORTISONE SOD SUCCINATE 100 MG/2 ML VIAL IV SCH ×2 (05:21→18:06)
[2019-06-01] MEDS: CEFAZOLIN 1000MG PREMIX 50 ML IV SCH ×2 (05:21→15:39)
[2019-06-01 06:23] LABS: HEMOGLOBIN. 9.4 g/dL (14.0-18.0); MEAN CORPUSCULAR HEMOGLOBIN 28.8 pg (28.0-32.0); MEAN PLATELET VOLUME 9.6 fl (7.4-10.4); PLATELET 189 x1000/uL (130-400); RED BLOOD CELL COUNT 3.25 mill/uL (4.7-6.1)
[2019-06-01 06:28] LABS: CHLORIDE 106 mEq/L (98-107)
[2019-06-01 08:10] LABS: BG BASE EXCESS 3.3 mmol/L (-2.0-2.0); BG CARBOXYHEMOGLOBIN 0.3 % (0.5-1.5); BG DEOXYHEMOGLOBIN 3.6 % (0.0-5.0); BG HCO3 ACT 28.9 mmol/L (22.0-26.0); BG METHEMOGLOBIN 0.3 % (0.0-1.5); BG OXYGEN SATURATION 96.4 % (92.0-98.5); BG OXYHEMOGLOBIN 95.8 % (94.0-97.0); BG PCO2 49.1 mmHg (35.0-45.0); BG PH 7.387 (7.350-7.450); BG PO2 85.5 mmHg (75.0-100.0); BG SAMPLE SITE RIGHT RADIAL; BG TIDAL VOLUME(mL) 500 mL; BG TOTAL HEMOGLOBIN 8.8 g/dL (12.0-18.0); BG VENT MODE VENT - A/C; BG VENT RATE 14 set
[2019-06-01] MEDS: POTASSIUM CHLORIDE 20MEQ/PACKET PO SCH (08:41)
[2019-06-01] MEDS: FUROSEMIDE 40MG/4ML VIAL IVP SCH (08:42)
[2019-06-01] MEDS: PANTOPRAZOLE SODIUM 40 MG/VIAL IV SCH (08:42)
[2019-06-01] MEDS ORDERED: MIDODRINE HCL 5MG TABLET PO SCH (09:00)
[2019-06-01 09:31] LABS: BG FRACTION INSPIRED OXYGEN 50
[2019-06-01 12:25] LABS: PLATELET ESTIMATE NORMAL
[2019-06-01 12:29] LABS: BG BASE EXCESS 3.9 mmol/L (-2.0-2.0); BG CARBOXYHEMOGLOBIN 0.3 % (0.5-1.5); BG DEOXYHEMOGLOBIN 3.4 % (0.0-5.0); BG FRACTION INSPIRED OXYGEN 50; BG HCO3 ACT 31.8 mmol/L (22.0-26.0); BG OXYGEN SATURATION 96.6 % (92.0-98.5); BG OXYHEMOGLOBIN 96.3 % (94.0-97.0); BG PCO2 67.9 mmHg (35.0-45.0); BG PH 7.288 (7.350-7.450); BG PRESSURE SUPPORT 10; BG SAMPLE SITE RIGHT RADIAL; BG TOTAL HEMOGLOBIN 9.9 g/dL (12.0-18.0); BG VENT MODE VENT - CPAP
[2019-06-01] MEDS: DILTIAZEM HCL 30MG TABLET PO SCH ×3 (12:52→23:22)
[2019-06-01 15:48] LABS: PARTIAL THROMBOPLASTIN TIME 25.6 sec (23.4-31.0); PROTHROMBIN TIME 11.2 sec (9.6-11.0)
[2019-06-01] MEDS: MICAFUNGIN 100 MG in SODIUM CHLORIDE 0.9% 100 ML IV SCH (18:06)
[2019-06-02] VITALS (35 sets, daily range): BP systolic 84–159; BP diastolic 32–83
[2019-06-02] MEDS: IPRATROPIUM/ALBUTEROL 0.5-3(2.5)MG/3ML NEB HHN SCH ×4 (01:36→20:30)
[2019-06-02] MEDS: DILTIAZEM HCL 30MG TABLET PO SCH ×4 (05:21→23:04)
[2019-06-02] MEDS: HYDROCORTISONE SOD SUCCINATE 100 MG/2 ML VIAL IV SCH ×2 (05:21→17:14)
[2019-06-02 06:14] LABS: HEMATOCRIT. 22.4 % (42.0-52.0); HEMOGLOBIN. 7.3 g/dL (14.0-18.0); MEAN CORPUSCULAR HEMOGLOBIN 28.9 pg (28.0-32.0); MEAN CORPUSCULAR VOLUME 88.5 fL (80.0-94.0); PLATELET 178 x1000/uL (130-400); RED BLOOD CELL COUNT 2.54 mill/uL (4.7-6.1); RED CELL DISTRIBUTION WIDTH 15.1 % (11.6-14.6)
[2019-06-02] MEDS: POTASSIUM CHLORIDE 20MEQ/PACKET PO SCH (08:28)
[2019-06-02] MEDS: PANTOPRAZOLE SODIUM 40 MG/VIAL IV SCH (08:28)
[2019-06-02] MEDS: FUROSEMIDE 40MG/4ML VIAL IVP SCH (08:43)
[2019-06-02 09:18] LABS: PROTHROMBIN TIME 10.9 sec (9.6-11.0)
[2019-06-02 10:36] LABS: PLATELET ESTIMATE NORMAL
[2019-06-02 12:24] LABS: BG BASE EXCESS 4.9 mmol/L (-2.0-2.0); BG CARBOXYHEMOGLOBIN 0.3 % (0.5-1.5); BG DEOXYHEMOGLOBIN 3.5 % (0.0-5.0); BG FRACTION INSPIRED OXYGEN 45; BG HCO3 ACT 30.5 mmol/L (22.0-26.0); BG METHEMOGLOBIN 0.2 % (0.0-1.5); BG OXYGEN SATURATION 96.5 % (92.0-98.5); BG PCO2 51.9 mmHg (35.0-45.0); BG PH 7.387 (7.350-7.450); BG PO2 86.8 mmHg (75.0-100.0); BG PRESSURE SUPPORT 10; BG SAMPLE SITE RIGHT RADIAL; BG TOTAL HEMOGLOBIN 7.5 g/dL (12.0-18.0); BG VENT MODE VENT - CPAP
[2019-06-02 15:03] LABS: BG BASE EXCESS 3.8 mmol/L (-2.0-2.0); BG CARBOXYHEMOGLOBIN 0.2 % (0.5-1.5); BG DEOXYHEMOGLOBIN 4.4 % (0.0-5.0); BG FRACTION INSPIRED OXYGEN 40; BG OXYGEN SATURATION 95.6 % (92.0-98.5); BG OXYHEMOGLOBIN 95.4 % (94.0-97.0); BG PH 7.347 (7.350-7.450); BG PO2 82.6 mmHg (75.0-100.0); BG PRESSURE SUPPORT 5; BG SAMPLE SITE RIGHT RADIAL; BG TOTAL HEMOGLOBIN 7.7 g/dL (12.0-18.0); BG VENT MODE VENT - CPAP
[2019-06-02] MEDS: NOREPINEPHRINE 32 MG in DEXT 5% WATER 468 ML IV PRN (20:27)
[2019-06-02] MEDS: CEFAZOLIN 1000MG PREMIX 50 ML IV SCH (23:04)
[2019-06-02] MEDS: MICAFUNGIN 100 MG in SODIUM CHLORIDE 0.9% 100 ML IV SCH (23:04)
[2019-06-03] VITALS (64 sets, daily range): BP systolic 108–161; BP diastolic 58–85
[2019-06-03] MEDS: IPRATROPIUM/ALBUTEROL 0.5-3(2.5)MG/3ML NEB HHN SCH ×4 (01:54→20:30)
[2019-06-03] MEDS: HYDROCORTISONE SOD SUCCINATE 100 MG/2 ML VIAL IV SCH (06:18)
[2019-06-03] MEDS: DILTIAZEM HCL 30MG TABLET PO SCH ×4 (06:18→23:25)
[2019-06-03] MEDS: FUROSEMIDE 40MG/4ML VIAL IVP SCH (08:35)
[2019-06-03] MEDS: PANTOPRAZOLE SODIUM 40 MG/VIAL IV SCH (08:35)
[2019-06-03] MEDS: POTASSIUM CHLORIDE 20MEQ/PACKET PO SCH (08:35)
[2019-06-03] MEDS: CEFAZOLIN 1000MG PREMIX 50 ML IV SCH ×2 (08:35→23:25)
[2019-06-03 11:14] LABS: BG BASE EXCESS 4.4 mmol/L (-2.0-2.0); BG CARBOXYHEMOGLOBIN 0.3 % (0.5-1.5); BG CPAP (cmH2O) 0 cm(H2O); BG DEOXYHEMOGLOBIN 3.6 % (0.0-5.0); BG HCO3 ACT 29.3 mmol/L (22.0-26.0); BG METHEMOGLOBIN 0.3 % (0.0-1.5); BG OXYGEN SATURATION 96.4 % (92.0-98.5); BG OXYHEMOGLOBIN 95.8 % (94.0-97.0); BG PCO2 45.9 mmHg (35.0-45.0); BG PH 7.423 (7.350-7.450); BG PO2 90.7 mmHg (75.0-100.0); BG SAMPLE SITE RIGHT RADIAL; BG TOTAL HEMOGLOBIN 7.5 g/dL (12.0-18.0); BG VENT MODE VENT - CPAP
[2019-06-03 14:09] LABS: MEAN CORPUSCULAR HEMOGLOBIN 29.3 pg (28.0-32.0); MEAN CORPUSCULAR VOLUME 87.5 fL (80.0-94.0); MEAN PLATELET VOLUME 8.9 fl (7.4-10.4); PLATELET 193 x1000/uL (130-400); RED BLOOD CELL COUNT 2.14 mill/uL (4.7-6.1); RED CELL DISTRIBUTION WIDTH 15.2 % (11.6-14.6)
[2019-06-03 14:30] LABS: HEMOGLOBIN. 6.3 g/dL (14.0-18.0)
[2019-06-03 14:31] LABS: HEMATOCRIT. 18.7 % (42.0-52.0)
[2019-06-03 14:41] LABS: PLATELET ESTIMATE NORMAL
[2019-06-03] MEDS ORDERED: MORPHINE SULFATE 2 MG/ML CPJ (NOT FOR IM USE) IV PRN (16:15)
[2019-06-03] MEDS ORDERED: SODIUM POLYSTYRENE SULFONATE 15 G/60 ML BOT PO NR (17:00)
[2019-06-03 17:48] LABS: BG BASE EXCESS 3.4 mmol/L (-2.0-2.0); BG CARBOXYHEMOGLOBIN 0.4 % (0.5-1.5); BG DEOXYHEMOGLOBIN 4.6 % (0.0-5.0); BG FRACTION INSPIRED OXYGEN 35; BG HCO3 ACT 28.3 mmol/L (22.0-26.0); BG METHEMOGLOBIN 0.2 % (0.0-1.5); BG OXYGEN SATURATION 95.4 % (92.0-98.5); BG OXYHEMOGLOBIN 94.8 % (94.0-97.0); BG PCO2 44.6 mmHg (35.0-45.0); BG PO2 78.5 mmHg (75.0-100.0); BG SAMPLE SITE RIGHT RADIAL; BG TOTAL HEMOGLOBIN 7.8 g/dL (12.0-18.0); BG VENT MODE MASK - AEROSOL
[2019-06-03] MEDS: MICAFUNGIN 100 MG in SODIUM CHLORIDE 0.9% 100 ML IV SCH (23:25)
[2019-06-03 23:52] LABS: HEMATOCRIT 27.5 % (42.0-52.0); HEMOGLOBIN 9.4 g/dL (14.0-18.0)
[2019-06-03 23:58] LABS: PROTHROMBIN TIME 11.3 sec (9.6-11.0)
[2019-06-04] VITALS (76 sets, daily range): BP systolic 75–159; BP diastolic 32–89
[2019-06-04] MEDS: IPRATROPIUM/ALBUTEROL 0.5-3(2.5)MG/3ML NEB HHN SCH ×3 (01:10→14:49)
[2019-06-04] MEDS: DILTIAZEM HCL 30MG TABLET PO SCH ×2 (06:07→11:57)
[2019-06-04] MEDS: FUROSEMIDE 40MG/4ML VIAL IVP SCH (08:54)
[2019-06-04] MEDS: CEFAZOLIN 1000MG PREMIX 50 ML IV SCH (08:54)
[2019-06-04] MEDS: PANTOPRAZOLE SODIUM 40 MG/VIAL IV SCH (08:54)
[2019-06-04] MEDS: POTASSIUM CHLORIDE 20MEQ/PACKET PO SCH (08:54)
[2019-06-04] MEDS ORDERED: HYDROCORTISONE SOD SUCCINATE 100 MG/2 ML VIAL IV SCH (09:00)
[2019-06-04 13:10] LABS: HEMATOCRIT. 23.1 % (42.0-52.0); HEMOGLOBIN. 7.7 g/dL (14.0-18.0); MEAN CORPUSCULAR HEMOGLOBIN 28.7 pg (28.0-32.0); MEAN CORPUSCULAR VOLUME 86.7 fL (80.0-94.0); MEAN PLATELET VOLUME 9.2 fl (7.4-10.4); PLATELET 182 x1000/uL (130-400); RED BLOOD CELL COUNT 2.67 mill/uL (4.7-6.1); RED CELL DISTRIBUTION WIDTH 15.3 % (11.6-14.6)
[2019-06-04 13:42] LABS: CHLORIDE 107 mEq/L (98-107)
[2019-06-04] MEDS ORDERED: MIDAZOLAM HCL 50 MG in DEXTROSE 5% WATER 40 ML IV PRN (15:00)
[2019-06-04] MEDS ORDERED: LORAZEPAM 2MG/ML CPJ IV PRN (15:00)
[2019-06-04 15:04] LABS: PLATELET ESTIMATE NORMAL
[2019-06-04] MEDS ORDERED: MORPHINE SULFATE 2 MG/ML CPJ (NOT FOR IM USE) IV PRN (16:15)
[2019-06-05] VITALS: BP_SYST 142; BP_SYST 154; BP_DIAS 70; BP_DIAS 75
[2019-06-05 04:00] VITALS: BP 100/51
== END 2019-06-05 08:00 | disposition expired | DRG 870 ==
LOC: ER 08:36 → EDBEDREQSVC 11:26 → MICUNO 12:16 → EDBEDREQ 12:21 → CANRESERV 13:02 → ENRESERV 13:02 → MICUNO 05-23 03:48 → CVICU 05-27 17:25 → 6EST 06-05 01:23
PROVIDERS: ADMIT Internal Medicine; ATTEND Internal Medicine
PROC: 5A1955Z Respiratory Ventilation, Greater than 96 Consecutive Hours (ICD-10-PCS; principal; 2019-05-22)
PROC: 0BH17EZ Insertion of Endotracheal Airway into Trachea, Via Natural or Artificial Opening (ICD-10-PCS; 2019-05-22)
PROC: 06HY33Z Insertion of Infusion Device into Lower Vein, Percutaneous Approach (ICD-10-PCS; 2019-05-22)
PROC: 5A1D70Z Performance of Urinary Filtration, Intermittent, Less than 6 Hours Per Day (ICD-10-PCS; 2019-05-24)
PROC: 02HV33Z Insertion of Infusion Device into Superior Vena Cava, Percutaneous Approach (ICD-10-PCS; 2019-05-25)
PROC: B548ZZA Ultrasonography of Superior Vena Cava, Guidance (ICD-10-PCS; 2019-05-25)
PROC: 5A1D70Z Performance of Urinary Filtration, Intermittent, Less than 6 Hours Per Day (ICD-10-PCS; 2019-05-28)
PROC: 5A1D70Z Performance of Urinary Filtration, Intermittent, Less than 6 Hours Per Day (ICD-10-PCS; 2019-06-01)
PROC: 0W993ZZ Drainage of Right Pleural Cavity, Percutaneous Approach (ICD-10-PCS; 2019-06-02)
PROC: 5A1D70Z Performance of Urinary Filtration, Intermittent, Less than 6 Hours Per Day (ICD-10-PCS; 2019-06-02)
PROC: 30233N1 Transfusion of Nonautologous Red Blood Cells into Peripheral Vein, Percutaneous Approach (ICD-10-PCS; 2019-06-03)
PROC: 5A1D70Z Performance of Urinary Filtration, Intermittent, Less than 6 Hours Per Day (ICD-10-PCS; 2019-06-04)
PROC: 5A09357 Assistance with Respiratory Ventilation, Less than 24 Consecutive Hours, Continuous Positive Airway Pressure (ICD-10-PCS; 2019-06-04)
DX: B37.7 Candidal sepsis (principal); J18.9 Pneumonia, unspecified organism; R65.21 Severe sepsis with septic shock; E43 Unspecified severe protein-calorie malnutrition; N18.6 End stage renal disease; J96.22 Acute and chronic respiratory failure with hypercapnia; J96.21 Acute and chronic respiratory failure with hypoxia; E87.1 Hypo-osmolality and hyponatremia; E87.2 Acidosis; G93.40 Encephalopathy, unspecified; N17.9 Acute kidney failure, unspecified; J91.0 Malignant pleural effusion; N39.0 Urinary tract infection, site not specified; Z66 Do not resuscitate; E87.5 Hyperkalemia; E86.0 Dehydration; E83.51 Hypocalcemia; A41.59 Other Gram-negative sepsis; D64.9 Anemia, unspecified; E87.70 Fluid overload, unspecified; J43.9 Emphysema, unspecified; Z86.73 Personal history of transient ischemic attack (TIA), and cerebral infarction without residual deficits; Z99.2 Dependence on renal dialysis; Z03.818 Encounter for observation for suspected exposure to other biological agents ruled out; Z68.30 Body mass index [BMI] 30.0-30.9, adult
CPT/HCPCS: 32555; 36415; 36600; 71045; 71250; 74018; 74176; 76937; 80048; 80053; 80076; 80202; 81003; 82040; 82105; 82140; 82375; 82378; 82805; 82962; 83036; 83605; 83615; 84145; 84300; 84478; 84484; 85014; 85018; 85025; 85049; 85362; 85379; 85384; 86850; 86900; 86920; 87070; 87077; 87186; 87635; 87804; 92610; 93005; 94002; 94003; 94640; 94660; 96365; 97162; 99291; C1752; C9113; J0610; J0690; J1650; J1720; J1815; J1940; J2060; J2248; J2250; J2270; J2370; J2543; J2704; J3010; J3370; J3490; J7050; J7060; P9016; P9047